=== PATIENT | female | born 1955 | race Caucasian/White ===

== ENCOUNTER → 2016-10-06 | Outpatient (CLI) | payer OTHER ==
--- NOTE | 2016-10-06 10:00 | RADIOLOGY REPORT PS360 ---
CHEST(2 VIEWS-NOT PORTABLE) COMPARISON: PA and lateral chest 07/09/2012. HISTORY: Left-sided chest pain TECHNIQUE: PA and lateral chest FINDINGS: The lung spring are well expanded and appear clear of infiltrate. Cardiac silhouette and vascularity are normal. There is no pleural fluid. There is mild degenerative change midthoracic spine. IMPRESSION: Essentially negative chest
== END ==
LOC: RAD 09:29
DX: R07.89 Other chest pain (principal)